=== PATIENT | male | born 1960 | race Caucasian/White ===

== ENCOUNTER 2025-02-26 09:40 | Day surgery (SDC) | payer OTHER, SELFPAY ==
[2025-02-21 14:47] VITALS: BMI 26.6
[2025-02-26] VITALS (11 sets, daily range): BP systolic 139–170; BP diastolic 76–88; PULSE 55–71; RESP 12–17; TEMP 36.6–36.7; O2SAT 98–100
[2025-02-26] MEDS: SODIUM CHLORIDE 0.9% 500 ML 500 ML 20 ML IV (10:34)
[2025-02-26] MEDS: DiphenhydrAMINE INJ 50 MG/ML VIAL 25 MG IVP (10:36)
[2025-02-26] MEDS: MIDAZOLAM INJ 1 MG/ML VIAL 2 ML (ASD USE ONLY) 2 MG IVP (10:39)
[2025-02-26] MEDS: fentaNYL CIT INJ 50 mCg/ML AMP 2ML (ASD USE ONLY) IVP (10:44)
== END 2025-02-26 11:55 | disposition home or self-care (01) ==
PROVIDERS: PCP Family Medicine; Referring Provider Specialist; Visit Provider Specialist
PROC: 0DBE8ZX Excision of Large Intestine, Via Natural or Artificial Opening Endoscopic, Diagnostic (ICD-10-PCS; CPT 45380; principal; 2025-02-26 11:00)
DX: Z12.11 Encounter for screening for malignant neoplasm of colon (principal); D12.2 Benign neoplasm of ascending colon; K64.9 Unspecified hemorrhoids
CPT/HCPCS: 45385; 45380; A4649; J1200; J2250; J3010; J7040